=== PATIENT | male | born 1995 | race Caucasian/White ===

== ENCOUNTER 2020-12-29 10:29 | Emergency (ER) | payer BC ==
[~2020-12-29] VITALS: Ht 177.8 cm; Wt 93.0 kg
[2020-12-29 10:32] VITALS: BP 121/65
[2020-12-29] MEDS ORDERED: IOHEXOL 300 MG/ML 75 ML VIAL. IV ONE (11:15)
[2020-12-29] MEDS ORDERED: oxyCODONE/APAP 5/325 1 TAB TABLET PO ONE (11:15)
--- NOTE | 2020-12-29 12:04 | RAD ---
PQRS Compliance Statement: One or more of the following individualized dose reduction techniques were utilized for this examinat ion: 1. Automated exposure control 2. Adjustment of the mA and/or kV according to patient size 3. Use of iterative reconstruction technique CT PELVIS W 12/29/2020 11:12 AM Indication: Swelling and rectum. Abscess. COMPARISON: None available. TECHNIQUE: Multiple axial CT images of the pelvis were obtained after the intravenous administration of 75 cc Omnipaque 300. Coronal and sagittal reformats are provided. FINDINGS: Pelvic vasculature is intact. No suspicious pelvic lymph nodes. There is no free fluid or free intrap eritoneal air. Small large bowel are normal in caliber. Appendix is normal. Urinary bladder is within normal limits given degree of distention. Prostate and seminal vesicles appear normal. No suspicious osseous normality is identified. There is subcutaneous edema superficial to the coccyx. There is no significant presacral edema. Levat or ani musculature appears intact. Intravenous appears intact without perianal abscess. Fistula may b e difficult to discern by CT if there is persistent clinical concern, pelvic MRI could be of benefit. No osseous erosion or subcutaneous gas is identified. IMPRESSION: There is subcutaneous edema with skin thickening superficial to the coccygeal region. There is no myesha inable, organized fluid collection to suggest abscess. Findings favor cellulitis. No definite involve ment of the anus or rectum. However if there is persistent clinical concern, further evaluation with pelvic MRI with and without contrast could be of benefit. Electronically signed by: Deborah Colin MD (12/29/2020 12:02 PM) [id number]
[2020-12-29] MEDS ORDERED: CLIN150C15 PO (12:13)
--- NOTE | 2020-12-29 12:13 | PHYS DOC ---
Past History Past Medical History: No Pertinent History Past Surgical History: No Surgical History Additional Smoking Information: chews Alcohol Use: None Adult General Chief Complaint Chief Complaint: BACK PAIN - NO INJURY [facility] HPI Patient is a 25-year-old male who presents to the emergency room complaining of swelling and pain between his buttocks. This started 3 days ago. He saw his primary care doctor yesterday who gave him a shot of antibiotics and told him it was likely a cyst. They recommended ibuprofen and Tylenol. He has been taking these every 6 hours without relief. He states that the pain is getting worse. He states that he was not referred to a surgeon. He denies any kind of fever, chills, sweats, abdominal pain. He has not had any difficulty with diarrhea or constipation. He has never had anything like this previously. Review of Systems Review of Systems Complete ROS is negative unless otherwise documented in HPI Current Medications Current Medications Current Medications Medications (Trade) Dose Ordered Sig/Camron Start Time Stop Time Status Last Admin Dose Admin Iohexol (Omnipaque 300 Mg/ml) 75 ml 1X ONCE 12/29/20 11:15 12/29/20 11:16 DC 12/29/20 11:31 75 ML Oxycodone/ Acetaminophen (Percocet 5/325) 1 tab 1X ONCE 12/29/20 11:15 12/29/20 11:16 DC 12/29/20 11:45 1 TAB Allergies Allergies Allergies Coded Allergies Type Severity Reaction Last Updated Verified No Known Drug Allergies 12/29/20 No Physical Exam Physical Exam General: Awake, alert, NAD. Well Nourished, well hydrated. Cooperative HEENT: Atraumatic, EOMI, PERRL, airway patent, moist oral mucosa Neck: Supple, trachea midline Respiratory: CTA bilaterally, normal effort, no wheezing/crackles CV: RRR, no murmur, cap refill <2 GI: Soft, nondistended, nontender, no masses : 3x1 cm area of erythema and swelling in the intergluteal cleft that does not include the rectum, no areas of fluctuance MSK: No obvious deformities Skin: Warm, dry, intact Neuro: A&O x3, speech NL, sensory and motor grossly intact, no focal deficits Psych: Normal affect, normal mood, not suicidal or homicidal Current Patient Data Vital Signs Vital Signs Date Time Temp Pulse Resp B/P (MAP) Pulse Ox O2 Delivery O2 Flow Rate FiO2 12/29/20 11:45 16 12/29/20 10:32 98.0 65 121/65 (83) 96 Room Air EKG EKG [] Radiology/Procedures Radiology/Procedures [] Heart Score Risk Factors: Risk Factors: DM, Current or recent (<one month) smoker, HTN, HLP, family history of CAD, obesity. Risk Scores: Risk Factors: DM, Current or recent (<one month) smoker, HTN, HLP, family history of CAD, obesity. Course & Med Decision Making Course & Med Decision Making Pertinent Labs and Imaging studies reviewed. (See chart for details) Patient is 25-year-old male who presents to the emergency room with pain and swelling within the intergluteal cleft. Area is close to the rectum but does not include the rectum. Given this there is concern for possible rectal abscess with fistula development. Will order a CT to rule out any, abscess. Is a little lower than I would expect for a pilonidal cyst but this is not impossible. CT shows cellulitis. No signs of abscess or cyst at this time. I did give the patient information to follow-up with surgery if he were to develop the same symptoms again with swelling. We will place him on antibiotics. Patient's test results and vitals while in the ED were fully reviewed and discussed with the patient. Patient is stable and at this time does not need admission to the hospital. We have discussed strict return precautions and the importance of following up with their Primary Care Physician. Patient stated understanding and was given an opportunity to ask any questions. Patient is in agreement with plan. Dragon Disclaimer Dragon Disclaimer This electronic medical record was generated, in whole or in part, using a voice recognition dictation system. Departure Departure: Impression: Primary Impression: Cellulitis Additional Impression: Pilonidal cyst Disposition: 01 DC HOME SELF CARE/HOMELESS Condition: STABLE Referrals: SEDRICK CORDERO (PCP) Patient Instructions: Cellulitis, Pilonidal Cyst Scripts Oxycodone HCl/Acetaminophen (Percocet 5-325 mg Tablet) 1 Each Tablet 1 TAB PO PRN TID PRN for SEVERE PAIN 7-10 MDD 3 Tablet(s) for 5 Days, #8 TAB 0 Refills Prov: HERNAN BROWN MD 12/29/20 Clindamycin Hcl (CLINDAMYCIN HCL) 150 Mg Capsule 3 CAP PO TID for infx, #30 CAP Prov: HERNAN BRONW MD 12/29/20 Problem Qualifiers HERNAN BROWN MD Dec 29, 2020 12:13
[2020-12-29] MEDS ORDERED: OXYC-325 PO (12:18)
== END 2020-12-29 12:34 | disposition home or self-care (01) ==
LOC: ER 10:29
DX: L03.312 Cellulitis of back [any part except buttock and flank] (principal); L05.91 Pilonidal cyst without abscess
CPT/HCPCS: 72193; 99285; Q9967